=== PATIENT | female | born 1960 | race Caucasian/White ===

== ENCOUNTER 2019-01-04 15:58 | Emergency (ER) | payer OTHER, MEDICAID ==
[~2019-01-04] VITALS: Ht 165.1 cm; Wt 70.3 kg
[2019-01-04 16:00] VITALS: BP_SYST 134
--- NOTE | 2019-01-04 16:00 | NUR ---
Patient triaged and placed in waiting room. VSS and patient appears in no acute distress at this time. Accompanied by SELF, awaiting available bed, and MD notified of need for MSE.
--- NOTE | 2019-01-04 16:57 | NUR ---
BROUGHT BACK TO BED #6 AND REPORT GIVEN TO MARIANA
--- NOTE | 2019-01-04 16:58 | NUR ---
Patient is awake, alert, and oriented x4. She is complaining of rash to bilateral arms and right eye. She presents with rash, itchiness. Denies pain, nausea, vomiting, and diarrhea.
--- NOTE | 2019-01-04 17:00 | NUR ---
ER Dr. Wilburn at bedside examining patient.
[2019-01-04 17:25] VITALS: BP_SYST 128
--- NOTE | 2019-01-04 17:25 | NUR ---
Patient given written and verbal discharge instructions and verbalizes understanding. ER MD discussed with patient the results and treatment provided. Patient in stable condition. ID arm band removed. Rx of benadryl, prednisone, bactrim ds given. Patient educated on pain management and to follow up with PMD. Pain Scale 0/10. Opportunity for questions provided and answered. Medication side effect fact sheet provided.
== END 2019-01-04 17:25 | disposition home or self-care (01) ==
LOC: SED 15:58
DX: S60.561A Insect bite (nonvenomous) of right hand, initial encounter (principal); S50.861A Insect bite (nonvenomous) of right forearm, initial encounter; S50.862A Insect bite (nonvenomous) of left forearm, initial encounter; S00.261A Insect bite (nonvenomous) of right eyelid and periocular area, initial encounter; S00.86XA Insect bite (nonvenomous) of other part of head, initial encounter; L08.9 Local infection of the skin and subcutaneous tissue, unspecified; L03.114 Cellulitis of left upper limb; L03.113 Cellulitis of right upper limb; L03.211 Cellulitis of face; M79.7 Fibromyalgia; I10 Essential (primary) hypertension; Z88.1 Allergy status to other antibiotic agents; W57.XXXA Bitten or stung by nonvenomous insect and other nonvenomous arthropods, initial encounter; Y93.89 Activity, other specified; Y92.89 Other specified places as the place of occurrence of the external cause; Y99.8 Other external cause status
CPT/HCPCS: 99283

== ENCOUNTER 2019-01-13 16:26 | Emergency (ER) | payer OTHER, MEDICAID ==
[~2019-01-13] VITALS: Ht 165.1 cm; Wt 72.6 kg
[2019-01-13 16:32] VITALS: BP_SYST 135
[2019-01-13] MEDS ORDERED: DIPHENHYDRAMINE HCL 25 MG CAPSULE PO ONE (19:00)
[2019-01-13] MEDS ORDERED: PREDNISONE 20 MG TABLET PO ONE (19:00)
[2019-01-13 19:15] VITALS: BP_SYST 135
== END 2019-01-13 19:15 | disposition home or self-care (01) ==
LOC: SED 16:26
DX: L50.0 Allergic urticaria (principal); M79.7 Fibromyalgia; I10 Essential (primary) hypertension; Z88.1 Allergy status to other antibiotic agents
CPT/HCPCS: 99283; J7512; Q0163